=== PATIENT | female | born 1995 | race Hispanic/Latino ===

== ENCOUNTER 2025-06-13 13:00 | Emergency (ER) | payer SELFPAY ==
[~2025-06-13] VITALS: Ht 154.9 cm; Wt 70.3 kg
--- NOTE | 2025-06-13 13:08 | ERN ---
General Chief Complaint: Abdominal Pain Stated Complaint: ABD PAIN Time Seen by MD: 13:03 Source: patient History of Present Illness Initial Comments In his is a 30-year-old female coming in complaining of epigastric pain. Per patient this pain began three days ago progressively getting worse. She states it is not attributed to eating in the pain began on its own. Patient quantifies the pain at 10/10 sharp radiating to the right upper quadrant area. Allergies: Coded Allergies: No Known Allergies (Unverified Allergy, Unknown, 06/13/25) ROS Dictation CONSTITUTIONAL: No chills, no fever, no weakness, no diaphoresis, no malaise. HEAD/FACE: No signs of trauma. EENT: No eye pain, no blurred vision, no tearing, no double vision, no ear pain, no ear discharge, no nose pain, no nasal congestion, no throat pain, no throat swelling, no mouth pain. RESPIRATORY: No cough, no orthopnea, no SOB, no stridor, no wheezing. CARDIOVASCULAR: No chest pain, no edema, no palpitations, no syncope. GASTROINTESTINAL/ABDOMINAL: abdominal pain, no constipation, no diarrhea, no nausea, no vomiting. GENITOURINARY: No abnormal discharge, no dysuria, no frequent urination, no hematuria. No complaints of pain in the genitals. MUSCULOSKELETAL: No back pain, no gout, no joint pain, no joint swelling, no muscle pain, no muscle stiffness, no neck pain. INTEGUMENTARY: No change in color, no change in hair/nails, no dryness, no lesion, no lumps, no rash. NEUROLOGICAL/PSYCH: No anxiety, not depressed, no emotional problem, no headache, no numbness, no pre-existing deficit, no history of seizures, no tremors, no weakness. HEMATOLOGIC/LYMPHATIC: Not anemic, no history of blood clots, no apparent bleeding, no bruising, glands not swollen. All Systems Negative, Except as Noted. Physical Exam Physical Exam Dictation VITAL SIGNS: Reviewed. GENERAL APPEARANCE: Alert, oriented x3, no acute distress, obese. HEAD AND FACE: Non-traumatic. EYES: PERRL, pink conjunctivas, eyelid no trauma, anterior chamber clear. EARS: Pinnas intact and no signs of trauma or erythema. Ear canals clear and no discharge. TMs no erythema. NOSE: No discharge, no bleeding. OROPHARYNX: Mouth normal, teeth no caries, tongue pink. Pharynx clear, no erythema. Tonsils no exudates, no abscesses noted. Mucous membrane moist. NECK: Supple, non-tender, no thyromegaly, no masses, no JVD, no bruits. BREAST: Deferred. CHEST: No tenderness, no crepitus, no paradoxical movement, no retractions. LUNGS: Clear, well-ventilated, symmetric, no rales, no wheezing, no rhonchi, no stridor, good breath sounds bilaterally. HEART: Regular rate, regular rhythm, no murmur, no gallops. VASCULAR: No peripheral edema. ABDOMEN: Soft, positive bowel sounds, nondistended, no guarding, epigastric tender, no rebound, no masses no hepatomegaly, no splenomegaly, no Soriano's sign, no hernias. RECTAL: Deferred. GENITAL: Deferred. NEUROLOGICAL: Normal speech, gross motor function intact, gross sensory function intact. MUSCULOSKELETAL: Neck nontender, full range of motion, back nontender, full range of motion. EXTREMITIES: Nontender, full range of motion. SKIN: Color pink, dry, no turgor, no rash, no lacerations, no abrasions, no contusions. LYMPHATICS: Deferred. Results Laboratory and Microbiology Lab and Micro Result Laboratory Tests Test 06/13/25 13:05 06/13/25 13:13 Urine Color COLORLESS (YELLOW) Urine Appearance CLEAR (CLEAR) Urine pH 6.0 (5.0-8.0) Urine Specific [place] 1.004 (1.001-1.031) Urine Protein NEGATIVE mg/dL (NEGATIVE) Urine Glucose (UA) NEGATIVE mg/dL (NEGATIVE) Urine Ketones NEGATIVE mg/dL (NEGATIVE) Urine Occult Blood NEGATIVE (NEGATIVE) Urine Nitrate NEGATIVE (NEGATIVE) Urine Bilirubin NEGATIVE mg/dL (NEGATIVE) Urine Urobilinogen 0.2 mg/dL (0.2-1.0) Urine Leukocyte Esterase NEGATIVE Kai/uL Urine HCG, Qualitative NEGATIVE (NEGATIVE) White Blood Count 10.2 K/uL (4.8-10.8) Red Blood Count 4.61 MIL/uL (4.00-5.50) Hemoglobin 14.8 g/dL (12.0-16.0) Hematocrit 44.2 % (36-48) Mean Corpuscular Volume 95.9 fL (79-99) Mean Corpuscular Hemoglobin 32.1 pg (27.0-33.0) Mean Corpuscular Hemoglobin Concent 33.5 g/dL (32.0-36.0) Red Cell Distribution Width 12.7 % (11.0-15.5) Platelet Count 283 K/uL (130-400) Mean Platelet Volume 9.3 fL (7.5-10.5) Immature Granulocyte % (Auto) 0.3 % (0-1) Neutrophils (%) (Auto) 64.5 % (40.0-77.0) Lymphocytes (%) (Auto) 27.8 % (21.0-51.0) Monocytes (%) (Auto) 4.6 % (3.0-13.0) Eosinophils (%) (Auto) 2.2 % (0.0-8.0) Basophils (%) (Auto) 0.6 % (0.0-5.0) Neutrophils # (Auto) 6.6 K/uL (1.8-7.7) Lymphocytes # (Auto) 2.8 K/uL (1.0-4.8) Monocytes # (Auto) 0.5 K/uL (0.1-1.0) Eosinophils # (Auto) 0.22 K/uL (0.00-0.70) Basophils # (Auto) 0.06 K/uL (0.00-0.20) Absolute Immature Granulocyte (auto 0.03 K/uL (0-1) Nucleated Red Blood Cells 0.0 % (0.0-0.19) Sodium Level 142 mmol/L (136-145) Potassium Level 3.5 mmol/L (3.5-5.1) Chloride Level 105 mmol/L (101-111) Carbon Dioxide Level 26 mmol/L (21-32) Blood Urea Nitrogen 8 mg/dL (7-18) Creatinine 0.5 mg/dL (0.5-1.0) Glomerular Filtration Rate Calc 129 mL/min (>90) Random Glucose 86 mg/dL (70-105) Total Calcium 9.3 mg/dL (8.5-10.1) Total Bilirubin 0.6 mg/dL (0.2-1.0) Aspartate Amino Transf (AST/SGOT) 17 U/L (10-37) Alanine Aminotransferase (ALT/SGPT) 24 U/L (12-78) Alkaline Phosphatase 96 U/L (50-136) Troponin I High Sensitivity < 4 ng/L (4-50) L Total Protein 7.8 g/dL (6.0-8.3) Albumin 4.0 g/dL (3.5-5.0) Lipase 16 U/L (16-77) Human Chorionic Gonadotropin, Quant 0 mIU/mL (0-5) Labs Reviewed?: Yes EKG/XRAY/US/CT/MRI EKG Comment 06/13/2025 time 2:21 p.m. Ventricular rate 63 Sinus rhythm [place] [address] wave elevation or depression CT Scan Comment [facility] [address] [place] [address] IMAGING REPORT Signed PATIENT: SUAD JOHNSON MR#: [id number] : 1995 SEX: F AGE: 30 LOCATION: [facility] ORDER [id number] STATUS: REG ER REPORT#: [id number] SERVICE 1414 REASON: rlq pain ORDERING PHYSICIAN: WENDY ATKINSON MD PROCEDURE: ABD PEL WO - CT ABDOMEN/PELVIS W/O CONTRAST EXAM: CT Abdomen and Pelvis Without IV contrast CLINICAL HISTORY: rlq pain TECHNIQUE: Axial computed tomography images of the abdomen and pelvis without intravenous contrast. CONTRAST: No IV contrast. COMPARISON: None provided. FINDINGS: LUNG BASES: The lung bases appear clear. No pleural effusions are seen. LIVER: Unremarkable. GALLBLADDER AND BILE DUCTS: The gallbladder appears within normal limits. No radiopaque gallstones are seen. No biliary ductal dilatation is evident. PANCREAS: Unremarkable. SPLEEN: Unremarkable. ADRENAL GLANDS: Unremarkable. KIDNEYS, URETERS, AND BLADDER: The kidneys appear within normal limits. There is no hydronephrosis or hydroureter. No urinary calculi are seen. STOMACH AND BOWEL: Unremarkable appearance of the stomach and bowel. No evidence of bowel obstruction. No evidence suggesting enteritis or colitis. APPENDIX: The appendix is normal. PERITONEUM: No free fluid. No free air. LYMPH NODES: No lymphadenopathy is evident. REPRODUCTIVE: Unremarkable as visualized. Tubal ligation clips noted within the pelvis. VASCULATURE: No evidence of abdominal aortic aneurysm. ABDOMINAL WALL Small umbilical hernia with herniation of omental fat BONES: No aggressive appearing osseous lesion. No acute osseous pathology evident. IMPRESSION: 1. No acute intraabdominal or pelvic pathology. /[place] DICTATED BY: ELLIOT HAYNES Jr., MD DATE: 06/13/251627 ELECTRONICALLY SIGNED BY: ELLIOT HAYNES Jr., MD DATE: 06/13/251627 MDM MDM: Differential diagnosis: Pancreatitis, abdominal pain, appendicitis Rationale: Tests considered and ordered secondary to shared decision making include: Previous outside records reviewed: Old ER visits. Risk of complication and/or morbidity or mortality of patient management: None Medications-Per medication reconciliation Need for hospitalization: Patient does not meet criteria for hospitalization. Need for emergency major/minor surgery: No Patient is a 30-year-old female coming in to be evaluated for generalized abdominal discomfort. Imaging studies and laboratory workup within normal limits. Patient has been tolerating oral intake pain has improved with GI cocktail. Patient will be discharged in stable condition. ED Course Orders Procedure Category Date Status Time Cbc With Differential LAB 06/13/25 Complete 13:05 Comprehensive LAB 06/13/25 Complete Metabolic Panel 13:05 Troponin I High LAB 06/13/25 Complete Sensitivity 13:05 Hcg,Quantitative LAB 06/13/25 Complete 13:05 ,Urine Test LAB 06/13/25 Complete 13:05 Urinalysis Profile LAB 06/13/25 Complete 13:05 12 Lead Ekg Tracing- EKG 06/13/25 Complete Technical 13:05 0.9%Nacl 1000ml (Ns PHA 06/13/25 Complete 1000ml) 13:30 Pantoprazole 40mg Inj PHA 06/13/25 Complete (Protonix 40mg Inj 13:30 Lipase LAB 06/13/25 Complete 13:05 Lidocaine Hcl 2% PHA 06/13/25 Complete Viscous (Lidocaine Hcl 14:00 Mag/Alum/Simeth 30ml PHA 06/13/25 Complete (Maalox Plus 30ml) 14:00 Ct Abdomen/Pelvis W/O CT 06/13/25 Resulted Contrast 14:14 Ketorolac PHA 06/13/25 Complete Tromethamine 30mg/Ml 15:00 Current Medications Medications (Trade) Dose Ordered Sig/Gonzalez Route PRN Reason Start Time Stop Time Status Last Admin Dose Admin Al Hydroxide/Mg Hydroxide (MAALox PLUS 30ML) 30 ml ONCE ONCE PO 06/13/25 14:00 06/13/25 14:01 DC 06/13/25 14:45 Ketorolac Tromethamine (toRADol) 30 mg ONCE ONCE IVP 06/13/25 15:00 06/13/25 15:01 DC 06/13/25 14:56 Lidocaine HCl (Lidocaine HCl 2% Viscous) 10 ml ONCE ONCE PO 06/13/25 14:00 06/13/25 14:01 DC 06/13/25 14:45 Pantoprazole Sodium (PROTonix 40MG INJ) 40 mg ONCE ONCE IVP 06/13/25 13:30 06/13/25 13:31 DC 06/13/25 13:36 Sodium Chloride 1,000 ml @ 0 mls/hr ONCE ONCE IV 06/13/25 13:30 06/13/25 13:31 DC 06/13/25 13:36 Vital Signs Date Time Temp Pulse Resp B/P (MAP) Pulse Ox O2 Delivery O2 Flow Rate FiO2 06/13/25 14:49 97.9 80 16 106/65 99 Room Air* 0 21 06/13/25 13:02 98.1 76 18 131/86 99 Room Air 0 DX & DISP Disposition: Discharge Departure Impression: Primary Impression: Gastroenteritis Condition: Stable Scripts Pantoprazole Sodium (Protonix) 40 Mg Ectab 1 TAB PO DAILY for 30 Days, #30 TAB 0 Refills Prov: WENDY ATKINSON MD 06/13/25 Additional Instructions: FOLLOW-UP WITH PRIMARY CARE PROVIDER IN 1 TO 2 DAYS. TAKE MEDICATIONS DIRECTED HERE IN THE EMERGENCY ROOM. OKAY TO CONTINUE HOME MEDICATIONS UNLESS OTHERWISE DISCUSSED DURING YOUR VISIT IN THE EMERGENCY ROOM TODAY. RETURN TO YOUR NEAREST EMERGENCY ROOM IF SYMPTOMS WORSEN OR IF THERE IS NO IMPROVEMENT. CALL 911 IF YOU NEED IMMEDIATE ASSISTANCE. TAKE TYLENOL [id number] NEEDED AND IF NO CONTRAINDICATIONS ARE PRESENT. INCREASE ORAL HYDRATION. A WOUND CULTURE OR URINE CULTURE WAS ORDERED HERE IN THE EMERGENCY ROOM DEPARTMENT PLEASE FOLLOW-UP WITH PRIMARY CARE PROVIDER AND ADVISE THEM TO GET REPORTS FROM OUR FACILITY. IF YOU HAD ANY ARELIS WRAP/SPLINTS THAT WERE APPLIED HERE, PLEASE DO NOT REMOVE THEM UNTIL YOU SEE YOUR PRIMARY CARE OR SPECIALTY. Referrals: Referrals: ALICE YADAV MD Time of Disposition: 15:46 WENDY ATKINSON MD Jun 13, 2025 13:07
[2025-06-13 13:28] LABS: IMMATURE GRANULOCYTE ABSOLUTE 0.03 K/uL (0-1); NUCLEATED RED BLOOD CELLS 0.0 % (0.0-0.19); PLATELET COUNT (AUTO) 283 K/uL (130-400); RED BLOOD CELL COUNT(AUTO) 4.61 MIL/uL (4.00-5.50); RED CELL DISTRIBUTION WIDTH 12.7 % (11.0-15.5); WHITE BLOOD COUNT (AUTO) 10.2 K/uL (4.8-10.8)
[2025-06-13 13:31] LABS: APPEARANCE,URINE CLEAR (CLEAR); GLUCOSE, URINE (UA) NEGATIVE (NEGATIVE); LEUKOCYTE ESTERASE ,URINE NEGATIVE Leu/uL (NEGATIVE); NITRATE,URINE NEGATIVE (NEGATIVE); OCCULT BLOOD,URINE NEGATIVE (NEGATIVE)
[2025-06-13] MEDS: 0.9%NACL 1000ML 1,000 ML IV ONE (13:36)
[2025-06-13 13:38] LABS: CREATININE 0.5 mg/dL (0.5-1.0); GLOMERULAR FILTR. RATE CALC 129.0 mL/min (>90); GLUCOSE,RANDOM 86.0 mg/dL (70-105); SODIUM SERUM 142.0 mmol/L (136-145); UREA NITROGEN, BLOOD 8.0 mg/dL (7-18)
[2025-06-13 13:40] LABS: ADD UA MICROSCOPIC NO
[2025-06-13 13:41] LABS: HCG,QUALITATIVE URINE NEGATIVE (NEGATIVE)
[2025-06-13 13:48] LABS: ASPARTATE AMINOTRANSFERASE 17.0 U/L (10-37); HCG,QUANTITATIVE 0.0 mIU/mL (0-5); TOTAL PROTEIN, SERUM 7.8 g/dL (6.0-8.3)
[2025-06-13] MEDS: LIDOCAINE HCL 2% VISCOUS 15 ML UDCUP PO ONE (14:45)
[2025-06-13] MEDS: MAG/ALUM/SIMETH 30 ML UDCUP PO ONE (14:45)
--- NOTE | 2025-06-13 15:26 | EKG ---
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
--- NOTE | 2025-06-13 15:29 | HMCIMG ---
EXAM: CT Abdomen and Pelvis Without IV contrast CLINICAL HISTORY: rlq pain TECHNIQUE: Axial computed tomography images of the abdomen and pelvis without intravenous contrast. CONTRAST: No IV contrast. COMPARISON: None provided. FINDINGS: LUNG BASES: The lung bases appear clear. No pleural effusions are seen. LIVER: Unremarkable. GALLBLADDER AND BILE DUCTS: The gallbladder appears within normal limits. No radiopaque gallstones are seen. No biliary ductal dilatation is evident. PANCREAS: Unremarkable. SPLEEN: Unremarkable. ADRENAL GLANDS: Unremarkable. KIDNEYS, URETERS, AND BLADDER: The kidneys appear within normal limits. There is no hydronephrosis or hydroureter. No urinary calculi are seen. STOMACH AND BOWEL: Unremarkable appearance of the stomach and bowel. No evidence of bowel obstruction. No evidence suggesting enteritis or colitis. APPENDIX: The appendix is normal. PERITONEUM: No free fluid. No free air. LYMPH NODES: No lymphadenopathy is evident. REPRODUCTIVE: Unremarkable as visualized. Tubal ligation clips noted within the pelvis. VASCULATURE: No evidence of abdominal aortic aneurysm. ABDOMINAL WALL Small umbilical hernia with herniation of omental fat BONES: No aggressive appearing osseous lesion. No acute osseous pathology evident. IMPRESSION: 1. No acute intraabdominal or pelvic pathology. /[address]
[2025-06-13] MEDS ORDERED: PANT40TA55 PO (15:46)
[2025-06-13 16:00] VITALS: BP 115/68; PULSE 76; RESP 17; TEMP 97.8; O2SAT 100
== END 2025-06-13 16:08 | disposition home or self-care (01) ==
LOC: EDH 13:00
DX: K52.9 Noninfective gastroenteritis and colitis, unspecified (principal)
CPT/HCPCS: 99285; 74176; 96374; 96361; 96375; 84484; 80053; 84702; 83690; 85025; 81003; 81025; 36415; 93005; J1885; J7030; J2470